=== PATIENT | female | born 1955 | race Caucasian/White ===

== ENCOUNTER 2017-11-22 07:20 | Day surgery (SDC) | payer OTHER ==
[2017-11-17 15:37] VITALS: BMI 25.8
[2017-11-22] MEDS ORDERED: LIDOCAINE HCL/PF 2% SDV 5ML VIAL ONE (07:27)
[2017-11-22] MEDS ORDERED: PROPOFOL 20 ML ONE ×2 (07:27)
[2017-11-22 12:02] VITALS: BP 120/77; PULSE 67; TEMP 97.9
== END 2017-11-22 09:30 | disposition home or self-care (01) ==
LOC: FASU-ENDO 07:20
PROVIDERS: ATTEND Internal Medicine Gastroenterology
PROC: 0DJD8ZZ Inspection of Lower Intestinal Tract, Via Natural or Artificial Opening Endoscopic (ICD-10-PCS; principal; 2017-11-22 08:20)
DX: Z12.11 Encounter for screening for malignant neoplasm of colon (principal)